=== PATIENT | female | born 1940 | race Caucasian/White ===

== ENCOUNTER 2018-03-18 13:27 | Emergency (ER) | payer MEDICARE, OTHER ==
--- NOTE | 2018-03-18 14:27 | EDM.PDOC ---
ED HPI GENERAL MEDICAL PROBLEM - General Chief Complaint: Cardiovascular Problem Stated Complaint: MED[facility] Time Seen by Provider: 03/18/18 14:25 Source of Information: Reports: Patient, EMS, Family, RN Notes Reviewed History Limitations: Reports: No Limitations - History of Present Illness INITIAL COMMENTS - FREE TEXT/NARRATIVE: 77-year-old female presents to the emergency department for syncopal event, he was brought in by EMS services syncopal event at the [facility] found to be hypotensive systolic blood pressure in the 80s, in route she was given Zofran 4 mg 1 and 500 mL of normal saline, her blood pressure has responded to systolics 106, she does not feel dizzy while she is laying down does have a slight headache and feels weak. She has had multiple events similar to this in the past of unknown etiology - Related Data Allergies Allergy/AdvReac Type Severity Reaction Status Date / Time No Known Allergies Allergy Verified 03/18/18 13:40 Home Meds: Home Meds Alendronate Sodium [Fosamax] 70 mg PO WEEKLY 03/18/18 [History] Citalopram [Citalopram HBr] 20 mg PO DAILY 03/18/18 [History] Gabapentin [Neurontin] 100 mg PO BEDTIME 03/18/18 [History] Levothyroxine 125 mcg PO ACBREAKFAST 03/18/18 [History] Omeprazole 20 mg PO DAILY 03/18/18 [History] Pramipexole [Mirapex] 0.125 mg PO BEDTIME 03/18/18 [History] Ranitidine HCl 300 mg PO DAILY 03/18/18 [History] Simvastatin [Zocor] 10 mg PO BEDTIME 03/18/18 [History] predniSONE [Prednisone] 4 mg PO DAILY 03/18/18 [History] Past Medical History Cardiovascular History: Reports: High Cholesterol Respiratory History: Reports: Pneumonia, Recurrent Gastrointestinal History: Reports: Cholelithiasis [employer] History: Reports: Dysfunctional Uterine Bleeding Musculoskeletal History: Reports: Arthritis, Osteoarthritis Neurological History: Reports: Migraines Psychiatric History: Reports: Depression Endocrine/Metabolic History: Reports: Hypothyroidism, Osteoporosis Immunologic History: Reports: Other (See Below) Other Immunologic History: PMR - Past Surgical History GI Surgical History: Reports: Cholecystectomy Female Surgical History: Reports: Hysterectomy, Salpingo-Oophorectomy Musculoskeletal Surgical History: Reports: Arthroscopic Knee Social & Family History - Tobacco Use Smoking Status *Q: Former Smoker Used Tobacco, but Quit: Yes Month/Year Tobacco Last Used: 35 years - Caffeine Use Caffeine Use: Reports: Coffee - Recreational Drug Use Recreational Drug Use: Yes ED ROS GENERAL - Review of Systems Review Of Systems: See Below Constitutional: Reports: Weakness HEENT: Reports: No Symptoms Respiratory: Reports: No Symptoms Cardiovascular: Reports: Lightheadedness, Syncope GI/Abdominal: Reports: Nausea. Denies: Vomiting : Reports: No Symptoms Musculoskeletal: Reports: No Symptoms Skin: Reports: No Symptoms Neurological: Reports: Dizziness, Headache ED EXAM, GENERAL - Physical Exam Exam: See Below Free Text/Narrative:: General: Elderly female, not in any distress, alert and oriented x3 HEENT: head is atraumatic normocephalic, eyes pupils equal round reactive to light, sclera clear no conjunctivitis appreciated. Ears hearing aids in place bilaterally. Nose no septal deviation, nares are clear, no blood present. Mouth mucosa is dry and pink no erythema or exudate noted in soft palate, tongue is midline uvula is midline, dentition is intact. Neck: Supple no thyromegaly no tracheal deviation. Nodes: Cervical nodes subclavicular nodes nontender no palpable lymphadenopathy noted. Lungs: clear to auscultation bilaterally with symmetrical respirations, no adventitious noise appreciated. CV: Regular rate and rhythm S1 and S2 appreciated no murmurs rubs or gallops noted. Abdomen: Soft, nontender, no palpable masses or organomegaly appreciated, no distention no guarding bowel sounds are present, . Neuro: Cranial nerves II through XII grossly intact Skin: Warm and dry, intact Extremities: No lower extremity edema appreciated, no before meals been placed over the right knee secondary to recent arthroscopic surgery of that knee Course - Vital Signs Last Recorded V/S: Last Vital Signs Temp 99.1 F 03/18/18 13:39 Pulse 77 03/18/18 14:48 Resp 21 H 03/18/18 14:48 BP 91/45 L 03/18/18 14:48 Pulse Ox 95 03/18/18 14:48 - Orders/Labs/Meds Orders: Active Orders 24 hr Category Date Time Status Cardiac Monitoring [RC] .As Directed Care 03/18/18 14:24 Active EKG Documentation Completion [RC] ASDIRECTED Care 03/18/18 14:24 Active Lactated Ringers [Ringers, Lactated] 1,000 ml Med 03/18/18 14:30 Active IV ASDIRECTED EKG 12 Lead [EK] Stat Ther 03/18/18 14:24 Ordered Medication Orders Lactated Ringer's (Ringers, Lactated) 1,000 mls @ 500 mls/hr IV ASDIRECTED JOSE Last Admin: 03/18/18 14:40 Dose: 500 mls/hr Labs: Laboratory Tests 03/18/18 03/18/18 Range/Units 14:30 14:30 WBC 10.8 (4.5-11.0) K/uL RBC 4.37 (3.30-5.50) M/uL Hgb 12.2 (12.0-15.0) g/dL Hct 37.7 (36.0-48.0) % MCV 86 (80-98) fL MCH 28 (27-31) pg MCHC 32 (32-36) % Plt Count 236 (150-400) K/uL Add Manual Diff Yes Neutrophils % (Manual) 79 H (36-66) % Band Neutrophils % 4 L (5-11) % Lymphocytes % (Manual) 8 L (24-44) % Monocytes % (Manual) 9 H (2-6) % Sodium 138 L (140-148) mmol/L Potassium 3.5 L (3.6-5.2) mmol/L Chloride 100 (100-108) mmol/L Carbon Dioxide 30 (21-32) mmol/L Anion Gap 11.5 (5.0-14.0) mmol/L BUN 26 H (7-18) mg/dL Creatinine 1.2 H (0.6-1.0) mg/dL Est Cr Clr Drug Dosing 27.75 mL/min Estimated GFR (MDRD) 43 L (>60) Glucose 98 (74-106) mg/dL Calcium 8.0 L (8.5-10.1) mg/dL Total Bilirubin 0.9 (0.2-1.0) mg/dL AST 97 H (15-37) U/L ALT 86 H (12-78) U/L Alkaline Phosphatase 97 (46-116) U/L CK-MB (CK-2) 0.0 (0-3.6) mg/mL Troponin I < 0.017 (0.000-0.056) ng/mL Total Protein 5.6 L (6.4-8.2) g/dL Albumin 2.9 L (3.4-5.0) g/dL Globulin 2.7 (2.3-3.5) g/dL Albumin/Globulin Ratio 1.1 L (1.2-2.2) Meds: Medications Generic Name Dose Route Start Last Admin Trade Name Freq PRN Reason Stop Dose Admin Lactated Ringer's 1,000 mls @ 500 mls/hr 03/18/18 14:30 03/18/18 14:40 Ringers, Lactated IV 500 mls/hr ASDIRECTED JOSE Administration Discontinued Medications Generic Name Dose Route Start Last Admin Trade Name Freq PRN Reason Stop Dose Admin Ketorolac Tromethamine 15 mg 03/18/18 14:45 03/18/18 14:53 Toradol IVPUSH 03/18/18 14:46 15 mg ONETIME ONE Administration Departure - Departure Time of Disposition: 15:46 Disposition: Home, Self-Care 01 Condition: Good Clinical Impression: Vasovagal syncope Referrals: PCP,None [Primary Care Provider] - Forms: ED Department Discharge Additional Instructions: Follow-up with primary care as needed, call or return to the emergency department worsening of symptoms - My Orders Last 24 Hours: My Active Orders 03/18/18 14:24 Cardiac Monitoring [RC] .As Directed EKG Documentation Completion [RC] ASDIRECTED EKG 12 Lead [EK] Stat 03/18/18 14:30 Lactated Ringers [Ringers, Lactated] 1,000 ml IV ASDIRECTED - Assessment/Plan Last 24 Hours: My Active Orders 03/18/18 14:24 Cardiac Monitoring [RC] .As Directed EKG Documentation Completion [RC] ASDIRECTED EKG 12 Lead [EK] Stat 03/18/18 14:30 Lactated Ringers [Ringers, Lactated] 1,000 ml IV ASDIRECTED Plan: Assessment Acuity = acute Site and laterality = vasovagal episode Etiology = secondary to recent laceration procedure Manifestations = none Location of injury = Home Lab values = CBC unremarkable, potassium low at 3.5 consistent hypokalemia creatinine elevated at 1.2 consistent with chronic renal failure stage G IIIB albumin low at 2.9 consistent hypoalbuminemia EKG demonstrates respiratory sinus arrhythmia, troponin negative Plan She was given oral fluids tolerated a meal blood pressure did respond felt significantly better after fluids and rest plan is discharge home follow-up with primary care as needed This note was dictated using [employer] voice recognition software please call with any questions on syntax or grammar.
[2018-03-18] MEDS ORDERED: Lactated Ringers 1,000 ML IV SCH (14:30)
[2018-03-18] MEDS ORDERED: Ketorolac 30 MG/ML SDV IVPUSH ONE (14:45)
== END 2018-03-18 17:14 | disposition home or self-care (01) ==
LOC: JP.ED 13:27
DX: R55 Syncope and collapse (principal); Z79.899 Other long term (current) drug therapy; Z87.891 Personal history of nicotine dependence
CPT/HCPCS: 36415; 80053; 82553; 84484; 85025; 93005; 96361; 96374; 99284; J1885; J7120